=== PATIENT | female | born 1950 | race Caucasian/White ===

== ENCOUNTER 2016-10-23 12:41 | Emergency (ER) | payer MEDICARE, BC ==
[2016-10-23 13:25] LABS: BASO % 0.4 % (0.1-1.2); EOS # 0.1 10_X3_uL (0.0-0.4); EOS % 0.6 % (0.7-5.8); GRAN # 6.7 10_X3_uL (1.6-6.1); GRAN % 85.1 % (34.0-71.1); HEMATOCRIT 38.9 % (34-45); HEMOGLOBIN 12.6 g/dL (11.2-15.7); LYMPH # 0.8 10_X3_uL (1.2-3.7); LYMPH % 9.5 % (19.3-51.7); MEAN CORPUSCULAR HEMOGLOBIN 29.7 pg (27.0-33.0); MEAN CORPUSCULAR HGB CONC 32.4 g/dL (32.0-36.0); MEAN CORPUSCULAR VOLUME 91.7 fL (79-95); MONO # 0.4 10_X3_uL (0.2-0.9); MONO % 4.4 % (4.7-12.5); PLATELET COUNT 185 x10_3/uL (182-369); RED BLOOD COUNT 4.24 x10_6/uL (3.9-5.2); RED CELL DISTRIBUTION WIDTH 26.5 % (11.7-14.4); WHITE BLOOD COUNT 7.9 x10_3/uL (4.0-10.0)
[2016-10-23 13:41] LABS: BLOOD UREA NITROGEN 12 mg/dL (7-18); CALCIUM 8.8 mg/dL (8.7-10.7); CARBON DIOXIDE 25 mmol/L (21-32); CREATININE 0.7 mg/dL (0.6-1.3); GLUCOSE,RANDOM 145 mg/dL (70-99); POTASSIUM 4.4 mmol/L (3.5-5.1); SODIUM 140 mmol/L (136-145); URIC ACID 6.2 mg/dL (2.6-6.0)
== END 2016-10-23 15:08 | disposition home or self-care (01) ==
LOC: ER 12:41
PROVIDERS: Family Medicine
DX: M10.9 Gout, unspecified (principal); M79.672 Pain in left foot; E11.9 Type 2 diabetes mellitus without complications; I10 Essential (primary) hypertension; I51.9 Heart disease, unspecified; Z95.5 Presence of coronary angioplasty implant and graft; F17.210 Nicotine dependence, cigarettes, uncomplicated; Z88.1 Allergy status to other antibiotic agents; Z79.899 Other long term (current) drug therapy; Z79.02 Long term (current) use of antithrombotics/antiplatelets; Z79.4 Long term (current) use of insulin
CPT/HCPCS: 36415; 73630; 80048; 84550; 85025; 99283; 99283-25

== ENCOUNTER 2016-11-15 12:05 | Emergency (ER) | payer BC | END 2016-11-15 13:25 | disposition home or self-care (01) | LOC: ER 12:05 | DX: S80.212A Abrasion, left knee, initial encounter (principal); S60.011A Contusion of right thumb without damage to nail, initial encounter; S40.011A Contusion of right shoulder, initial encounter; W01.0XXA Fall on same level from slipping, tripping and stumbling without subsequent striking against object, initial encounter; E11.9 Type 2 diabetes mellitus without complications; Z90.710 Acquired absence of both cervix and uterus; Z79.4 Long term (current) use of insulin; Z79.82 Long term (current) use of aspirin; Z79.02 Long term (current) use of antithrombotics/antiplatelets; Z79.899 Other long term (current) drug therapy; Z88.1 Allergy status to other antibiotic agents | CPT/HCPCS: 73030; 73130; 73564; 99070; 99283; 99283-25 ==